=== PATIENT | female | born 2000 | race Caucasian/White ===

== ENCOUNTER 2023-10-15 15:48 | Emergency (ER) | payer OTHER ==
[2023-10-15 16:19] VITALS: RESP 16; BMI 31.3
[2023-10-15] MEDS ORDERED: ACETAMINOPHEN 500 MG TABLET (FP) PO ONE (16:38)
[2023-10-15] MEDS ORDERED: IBUPROFEN 400 MG TABLET (FP) PO ONE ×2 (16:39→16:43)
[2023-10-15] MEDS ORDERED: ACETAMINOPHEN 500 MG TABLET (FP) ONE (16:41)
[2023-10-15 18:06] VITALS: BP 107/66; PULSE 86; TEMP 100.4
== END 2023-10-15 19:08 | disposition home or self-care (01) ==
LOC: JERFT 15:48
DX: R05.9 Cough, unspecified (principal); J02.9 Acute pharyngitis, unspecified; J10.1 Influenza due to other identified influenza virus with other respiratory manifestations; Z20.822 Contact with and (suspected) exposure to COVID-19
CPT/HCPCS: 0241U-QW; 87651; 99283-25